=== PATIENT | female | born 1975 | race Two or more races ===

== ENCOUNTER 2024-04-04 06:40 | Day surgery (SDC) | payer OTHER ==
[2024-04-04] MEDS ORDERED: DIPHENHYDRAMINE HCL 50 MG/ML VIAL 1ML IV ONE (09:45)
[2024-04-04] MEDS ORDERED: fentaNYL CITRATE 50 MCG/ML AMPUL IV PUSH ONE (09:45)
[2024-04-04] MEDS ORDERED: MIDAZOLAM HCL 2 MG/2 ML VIAL IV ONE (09:45)
== END 2024-04-04 10:35 | disposition home or self-care (01) ==
LOC: AMB-ENDOS 06:40
PROVIDERS: ATTEND Colon & Rectal Surgery
DX: K63.5 Polyp of colon (principal); D12.6 Benign neoplasm of colon, unspecified; I86.8 Varicose veins of other specified sites